=== PATIENT | male | born 1975 | race Two or more races ===

== ENCOUNTER 2020-02-26 21:28 | Emergency (ER) | payer BC ==
[~2020-02-26] VITALS: Ht 180.3 cm; Wt 108.9 kg
[2020-02-26 23:28] VITALS: BP 143/80
[2020-02-27] MEDS ORDERED: cefTRIAXone SOD 1,000 MG VL IM ONE (01:30)
== END 2020-02-27 02:23 | disposition home or self-care (01) ==
LOC: ER 21:28
DX: R51 Headache (principal); R06.02 Shortness of breath; R09.81 Nasal congestion; Z20.828 Contact with and (suspected) exposure to other viral communicable diseases
CPT/HCPCS: 71045; 87070; 87635; 87804; 87880; 96372; 99284; J0696

== ENCOUNTER 2021-12-14 11:27 | Emergency (ER) | payer BC ==
[~2021-12-14] VITALS: Ht 180.3 cm; Wt 108.9 kg
[2021-12-14] MEDS ORDERED: SODIUM CHLORIDE 0.9% 500 ML IV ONE (12:15)
[2021-12-14 13:35] LABS: Albumin 3.6 g/dL (3.4-5.0); Calcium 8.9 mg/dL (8.5-10.1); Magnesium 2.5 mg/dL (1.6-2.6); Potassium 4.3 mmol/L (3.5-5.1)
[2021-12-14 13:39] LABS: BUN/Creatinine Ratio 12.3; Bilirubin, Total 0.6 mg/dL (0.2-1.0); CRP High Sensitivity 0.18 mg/dL (< 0.3); Total Protein 7.3 g/dL (6.4-8.2)
[2021-12-14 13:43] LABS: Basophils # (auto) 0.3 10 ^3/uL (0-0.2); Eosinophils # (auto) 0.2 10 ^3/uL (0-0.8); Eosinophils % (auto) 2.2 % (0.0-7.0); Hematocrit 46.8 % (41.0-53.0); Hemoglobin 15.9 g/dL (13.5-17.5); Lymphocytes # (auto) 2.2 10 ^3/uL (0.4-5.4); Lymphocytes % (auto) 31.1 % (10.0-50.0); Mean Corpuscular Hemoglobin 29.3 pg (28.0-32.0); Mean Corpuscular Volume 86.2 fL (80.0-100.0); Monocytes # (auto) 0.4 10 ^3/uL (0-1.3); Monocytes % (auto) 6.3 % (0.0-12.0); Neutrophils % (auto) 56.4 % (37.0-80.0); Nucleated Red Blood Cells % 0.6 %; Red Blood Cells 5.43 10^6/uL (4.5-5.90)
[2021-12-14] MEDS ORDERED: ACETAMINOPHEN 325 MG TAB PO ONE (14:45)
[2021-12-14] MEDS ORDERED: KETOROLAC TROMETH 30 MG/ML 1ML VIAL IV ONE (17:45)
[2021-12-14 18:00] VITALS: BP 128/85
== END 2021-12-14 19:33 | disposition home or self-care (01) ==
LOC: ER 11:27
DX: I16.0 Hypertensive urgency (principal); R06.02 Shortness of breath; R51.9 Headache, unspecified; Z20.822 Contact with and (suspected) exposure to COVID-19
CPT/HCPCS: 36415; 70450; 71045; 80053; 82728; 83735; 83880; 84484; 85025; 85379; 86141; 87426; 93005; 96361; 96374; 99285; J1885; J7040

== ENCOUNTER 2022-07-27 09:09 | Emergency (ER) | payer BC ==
[~2022-07-27] VITALS: Ht 180.3 cm; Wt 110.0 kg
[2022-07-27 11:30] VITALS: BP 120/72
[2022-07-27] MEDS ORDERED: TETANUS-DIPTH-ACEL PERTUSSIS 0.5ML SYR Tdap IM ONE (12:00)
[2022-07-27] MEDS ORDERED: KETOROLAC TROMETH 60MG/2ML VIAL IM ONE (12:00)
[2022-07-27] MEDS ORDERED: IBUP600T27 PO (12:16)
== END 2022-07-27 12:17 | disposition home or self-care (01) ==
LOC: ER 09:09
DX: S61.411D Laceration without foreign body of right hand, subsequent encounter (principal); X58.XXXD Exposure to other specified factors, subsequent encounter
CPT/HCPCS: 96372; 99283; J1885; 90715

== ENCOUNTER 2023-07-22 19:43 | Emergency (ER) | payer BC ==
[~2023-07-22] VITALS: Ht 180.3 cm; Wt 106.0 kg
[~2023-07-22 19:43] MED LIST: IBUP-1454 PO
[2023-07-22 21:06] LABS: Basophils # (auto) 0 10 ^3/uL (0-0.2); Basophils % (auto) 0.2 % (0.0-2.0); Eosinophils # (auto) 0.1 10 ^3/uL (0-0.8); Eosinophils % (auto) 1.3 % (0.0-7.0); Hemoglobin 16.9 g/dL (13.5-17.5); Lymphocytes # (auto) 0.9 10 ^3/uL (0.4-5.4); Lymphocytes % (auto) 11.7 % (10.0-50.0); Mean Corpuscular Hemoglobin 29.1 pg (28.0-32.0); Mean Corpuscular Hgb Conc. 33.8 g/dL (32.0-36.0); Mean Corpuscular Volume 86.1 fL (80.0-100.0); Monocytes # (auto) 0.4 10 ^3/uL (0-1.3); Neutrophils # (auto) 6.6 10 ^3/uL (1.6-8.6); Neutrophils % (auto) 81.8 % (37.0-80.0); Nucleated Red Blood Cells % 0.1 %; Red Blood Cells 5.81 10^6/uL (4.5-5.90); Red Cell Distribution Width 13.4 % (11.8-14.3)
[2023-07-22 21:12] LABS: Alanine Aminotransferase 122 U/L (7-40); Albumin 4.9 g/dL (3.2-4.8); Alkaline Phosphatase 98 U/L (46-116); Anion Gap 10 (5-15); Aspartate Aminotransferase 75 U/L (13-40); BUN/Creatinine Ratio 10.1 (10.0-20.0); Bilirubin, Total 1.7 mg/dL (0.2-1.0); Blood Urea Nitrogen 11 mg/dL (9-23); Calcium 9.3 mg/dL (8.7-10.4); Carbon Dioxide 20 mmol/L (20-30); Chloride 106 mmol/L (98-107); Glucose 106 mg/dL (74-106); Lipase 35 U/L (12-53); Potassium 3.8 mmol/L (3.5-5.1); Sodium 136 mmol/L (136-145); Total Protein 7.9 g/dL (5.7-8.2)
[2023-07-22 21:29] LABS: Urine Bacteria NONE SEEN /hpf (None Seen); Urine Blood TRACE /uL (Negative); Urine Clarity Clear (Clear); Urine Color Yellow (Yellow); Urine Mucus FEW (None Seen); Urine Protein, UAD TRACE (Negative); Urine Specific Gravity 1.032 (1.001-1.035); Urine Urobilinogen Normal (Negative); Urine WBC 1 /hpf (0 - 3)
[2023-07-22] MEDS ORDERED: DICYCLOMINE HCL (10MG/ML) 2 ML AMPULE IM ONE (21:45)
[2023-07-22] MEDS ORDERED: ONDANSETRON ODT 4 MG TAB PO ONE (21:45)
[2023-07-22] MEDS ORDERED: DICY10CA PO (23:48)
[2023-07-22] MEDS ORDERED: ZOFR4T PO (23:48)
[2023-07-22] MEDS ORDERED: TRAM50TA2 PO (23:48)
[2023-07-22 23:50] VITALS: BP 131/68; PULSE 68; RESP 18; TEMP 98.6; O2SAT 99
== END 2023-07-22 23:58 | disposition home or self-care (01) ==
LOC: ER 19:43
DX: A05.9 Bacterial foodborne intoxication, unspecified (principal)
CPT/HCPCS: 36415; 74176; 80053; 81001; 83690; 85025; 96372; 99285; J0500; Q0162